=== PATIENT | male | born 1980 | race Caucasian/White ===

== ENCOUNTER 2024-07-08 12:05 | Emergency (ER) | payer OTHER ==
[2024-07-08 12:13] VITALS: BP 146/92; PULSE 112; RESP 20; TEMP 97.6; BMI 29.0
[2024-07-08] MEDS ORDERED: METHOCARBAMOL 500 MG TABLET ONE (12:25)
[2024-07-08] MEDS ORDERED: ACETAMINOPHEN 500 MG TABLET (FP) ONE (12:25)
[2024-07-08] MEDS ORDERED: KETOROLAC TROMETHAMINE 30 MG/1 ML VIAL ONE (12:25)
[2024-07-08] MEDS: METHOCARBAMOL 500 MG TABLET PO ONE (12:40)
[2024-07-08] MEDS: ACETAMINOPHEN 500 MG TABLET (FP) PO ONE (12:40)
[2024-07-08] MEDS: KETOROLAC TROMETHAMINE 30 MG/1 ML VIAL IM ONE (12:40)
== END 2024-07-08 13:25 | disposition home or self-care (01) ==
LOC: JERFT 12:05
PROC: 3E0133Z Introduction of Anti-inflammatory into Subcutaneous Tissue, Percutaneous Approach (ICD-10-PCS; principal; 2024-07-08)
DX: M54.50 Low back pain, unspecified (principal); G89.29 Other chronic pain
CPT/HCPCS: 99284-25